=== PATIENT | male | born 1955 | race Caucasian/White ===

== ENCOUNTER 2017-04-15 05:29 | Inpatient (IN) | payer OTHER ==
[~2017-04-15] VITALS: Ht 172.7 cm; Wt 89.4 kg
[~2017-04-15 05:29] MED LIST: ACETAMINOPHEN 325 MG TABLET ONE; ACETAMINOPHEN 650 MG/20.3 ML UDC NG PRN; AMLO10TA4 PO; ASPI81TA2 PO; ATOR40TA PO; BLOO-668 IN; CELECOXIB 100 MG CAPSULE PO SCH; DICY10CA59 PO; HYDR-548 PO; IBUP-1482 PO; INSU100I19 SQ; KETOROLAC TROMETHAMINE 10 MG TABLET PO PRN; METO-302 PO; PIOG45TA PO; SILD100T PO; SITA1TAB6 PO; VALS1TAB52 PO; oxyCODONE HCL SR 10MG TAB.SR.12H PO ONE; oxyCODONE HCL SR 40MG TAB.SR.12H PO SCH
[2017-04-15] MEDS ORDERED: KETOROLAC TROMETHAMINE INJ 30 MG/ML VIAL IV PRN (06:00)
[2017-04-15] MEDS ORDERED: LIDOCAINE 0.5%-EPI 1:200,000 50 ML VIAL ONE (06:15)
[2017-04-15] MEDS ORDERED: HEMOSTATIC MATRIX 10 ML 1 EACH PAD MC ONE ×2 (06:15→10:54)
[2017-04-15] MEDS ORDERED: BUPIVACAINE 0.5 % PF 150 MG/30 ML VIAL ONE (06:15)
[2017-04-15] MEDS ORDERED: methylPREDNISolone ACETATE 80 MG/ML VIAL ONE (06:15)
[2017-04-15] MEDS ORDERED: DEXTROSE ISO IV ONE (06:16)
[2017-04-15] MEDS ORDERED: CEFAZOLIN SODIUM IV ONE (06:16)
[2017-04-15] MEDS ORDERED: HEPARIN SODIUM, PORCINE 5000 UNITS/1 ML VIAL ONE (06:27)
[2017-04-15] MEDS ORDERED: MIDAZOLAM HCL 2 MG/2ML VIAL ONE (07:23)
[2017-04-15] MEDS ORDERED: FENTANYL PF 250MCG/5ML AMPUL ONE ×2 (07:23→08:53)
[2017-04-15] MEDS ORDERED: ROCURONIUM BROMIDE 50 MG/5 ML ONE ×2 (07:23→08:53)
[2017-04-15] MEDS ORDERED: CEFAZOLIN SODIUM/DEXTROSE,ISO 50 ML IV ONE ×2 (10:02→13:17)
[2017-04-15] MEDS ORDERED: GELATIN SPONGE,ABSORBABLE 1 EA SPONGE TP ONE (10:46)
[2017-04-15] MEDS ORDERED: HYDROMORPHONE 2 MG/1 ML SDV ONE (14:24)
[2017-04-15] MEDS ORDERED: ANESTHESIA TRAY IN PYXIS 1 EA TRAY MC ONE (14:40)
[2017-04-15] MEDS ORDERED: AMBIEN 5 MG TABLET PO PRN (15:00)
[2017-04-15] MEDS ORDERED: COLACE 100 MG CAPSULE PO PRN (15:00)
[2017-04-15] MEDS ORDERED: DULCOLAX 10 MG/SUPP.RECT RC PRN (15:00)
[2017-04-15] MEDS ORDERED: ZOFRAN 4mg/2ML IV PRN (15:00)
[2017-04-15] MEDS ORDERED: IV D5/0.45 NACL 1,000 ML IV PRN (15:00)
[2017-04-15] MEDS ORDERED: TYLENOL 650 MG TABLET PO PRN (15:00)
--- NOTE | 2017-04-15 15:10 | NUR ---
[facility] admitting note Received patient from RN Adrien in OR. patient opens eyes spontaneously, drowsy s/p anesthesia, denies pain at this time, a+ox3. telemetry read SR 80s with 1st degree AV block. patient's friend is at bed side. BL wrist IVs patent, no complications. plan to commence maintenance fluids. pending assessment from hospitalist. Hightower catheter draining clear yellow urine. oriented to unit, discussed plan of care, educated patient on disease process, surgery, post op management, medication prescribed, and slow deep breathing. pt. need further education, he is lethargic at this time. anterior and posterior trunk dressings intact and clean. not to remove at this time per nursing report.. rest of integumentary system intact. no photos taken. wrist band on.
[2017-04-15 16:00] VITALS: BP 117/62
[2017-04-15] MEDS: ANCEF 1 G in IV D5W 50 ML IV SCH ×2 (16:02→23:58)
[2017-04-15] MEDS ORDERED: BLOOD SUGAR DIAGNOSTIC 1 EACH STRIP IN SCH (17:00)
[2017-04-15] MEDS: HYDROMORPHONE MDV 30 MG in IV NS 0.9% 15 ML, PCA TOTAL VOLUME 1 BAG IV PRN ×3 (17:21)
[2017-04-15] MEDS ORDERED: HYDROMORPHONE 1 MG/1 ML DISP.SYRIN IV ONE (17:30)
[2017-04-15] MEDS ORDERED: DEXTROSE 50%-WATER 50 ML DISP.SYRIN IV PRN (17:30)
--- NOTE | 2017-04-15 17:30 | NUR ---
RN note MUD PLANT OPERATOR pump set up with ICU nurse, charge nurse and pharmacist Rohit d/t trouble shooting. MUD PLANT OPERATOR pump is infusing at prescribed rate. patient is safe, no adverse effects, RR 16bpm. o2 sat 95% with 2L O2 NC.
[2017-04-15] MEDS: IV D5 / 0.2% NACL 1,000 ML IV PRN ×2 (18:23→23:58)
[2017-04-15] MEDS: METFORMIN 500 MG TABLET PO SCH (18:24)
[2017-04-15] MEDS: BLOOD SUGAR DIAGNOSTIC 1 EACH STRIP IN SCH ×2 (18:24→21:37)
[2017-04-15] MEDS: DICYCLOMINE HCL 10 MG CAPSULE PO SCH (18:24)
[2017-04-15] MEDS: INSULIN REGULAR, HUMAN 100 UNIT/ML 3 ML VIAL SQ PRN (18:29)
--- NOTE | 2017-04-15 18:49 | NUR ---
RN note VEHICLE UPHOLSTERER Shan said do not administer Dilaudid one time because EXPLOSIVES DETONATOR pump now infusing.
--- NOTE | 2017-04-15 19:12 | NUR ---
end of shift handed off report to night nurse. patient has increase LOC since admission. verbalizing needs. VS WNL. all needs attended to. call light in reach.
--- NOTE | 2017-04-15 19:30 | NUR ---
RN INITIAL NOTES RECEIVED PT AWAKE ON BED, A/O X4. ON 2L NASAL CANNULA, SATURATING WELL, NO S/S OF RESP DISTRESS. CURRENTLY ST WITH 1ST DEGREE AV BLOCK ON THE MONITOR, HR 100-110'S. PT IS ON DILAUDID (0.2MG/ML CONCENTRATION) MACHINE I ENGRAVER PUMP RUNNING @ CONTINUOUS RATE OF 0.2MG/HR, MACHINE I ENGRAVER DOSE OF 0.3MG, 1HOUR LIMIT OF 3MG. PT PAIN IS ADEQUATELY CONTROLLED OF THE MOMENT. JUANCARLOS RESTREPO NOTED. LEFT WRIST 18G AND RIGHT WRIST 18G WITH D5 1/4NS @ 75MLS/HR, FLUSHED AND PATENT, NO S/S OF INFILTRATION/INFECTION, DRESSINGS CDI. BED LOW AND LOCKED, SIDERAILS UP, CALL LIGHT WITHIN REACH. WILL MONITOR Addendum: 04/15/17 at 2232 by ANDRIA KIRBY RN DISREGARD DILAUDID CONCENTRATION ABOVE. CORRECT CONCENTRATION IS 1MG/1ML
[2017-04-15 20:00] VITALS: BP 96/57
[2017-04-15] MEDS: ATORVASTATIN 40 MG TABLET PO SCH (21:37)
[2017-04-15] MEDS: INSULIN DETEMIR 100 UNIT/ML CARTRIDGE SQ SCH (21:43)
--- NOTE | 2017-04-15 21:45 | NUR ---
RN NOTES PT REFUSED REGULAR INSULIN COVERAGE FOR BLOOD SUGAR OF 305. HOWEVER, HE ALLOWED ADMINISTRATION OF SCHEDULED LEVEMIR 45 UNITS. EDUCATION PROVIDED, PT VERBALIZED UNDERSTANDING
[2017-04-16] VITALS: BP 94/53
[2017-04-16 04:00] VITALS: BP 90/53
[2017-04-16 06:38] LABS: BASOPHILS % (AUTO) 0.4 % (0.0-2.0); EOSINOPHILS % (AUTO) 0.2 % (0.0-6.0); HEMATOCRIT 29 % (39-51); HEMOGLOBIN 9.8 g/dL (13.5-17.5); LYMPHOCYTES # (AUTO) 1.2 /CMM (0.8-4.8); LYMPHOCYTES % (AUTO) 13.8 % (20.0-44.0); MEAN CORPUSCULAR HEMOGLOBIN 30 PG (26.0-33.0); MEAN CORPUSCULAR HGB CONC 34 g/dl (31.0-36.0); MEAN CORPUSCULAR VOLUME 90 fL (80-96); MONOCYTES # (AUTO) 0.4 /CMM (0.1-1.30); MONOCYTES % (AUTO) 4.7 % (2.0-12.0); NEUTROPHILS # (AUTO) 6.8 /CMM (1.8-8.9); NEUTROPHILS % (AUTO) 80.9 % (43.0-81.0); PLATELET COUNT (AUTO) 166 /CMM (150-450); RDW COEFFICIENT OF VARIATION 15.6 (11.5-15.0); RED BLOOD CELL COUNT(AUTO) 3.25 MIL/uL (4.5-6.0); WHITE BLOOD COUNT (AUTO) 8.4 K/uL (4.3-11.0)
--- NOTE | 2017-04-16 06:45 | NUR ---
RN CLOSING NOTES PT REMAINS STABLE OF THE MOMENT. ALL DUE MEDS GIVEN, DILAUDID CONCENTRATOR OPERATOR PUMP STILL CURRENTLY INFUSING @ 0.2MG/HR. PT REFUSED AM CARE. WILL ENDORSE CONTINUITY OF CARE TO AM RN
[2017-04-16 07:06] LABS: CREATININE 1.3 mg/dL (0.6-1.3); POTASSIUM 4.5 mmol/L (3.5-5.1)
--- NOTE | 2017-04-16 07:30 | NUR ---
RN NOTES RECEIVED PT RESTING IN BED, WATCHING TV, AWAKE ALERT ORIENTEDX4, ABLE TO COMMUNICATE NEEDS. ON 2L NASAL CANNULA, SATURATING WELL, 99% AT THIS TIME. NO S/S OF RESP DISTRESS. CURRENTLY SR WITH 1ST DEGREE AV BLOCK ON THE MONITOR, HR 95 PER REPORT PT GOES ST UP TO 110'S. PT IS ON DILAUDID (0.2MG/ML CONCENTRATION) SURVEY INSTRUMENT OPERATOR PUMP RUNNING @ CONTINUOUS RATE OF 0.2MG/HR, SURVEY INSTRUMENT OPERATOR DOSE OF 0.3MG, 1HOUR LIMIT OF 3MG. CLEARED SURVEY INSTRUMENT OPERATOR INFUSION FROM PREVIOUS SHIFT. PT VERBALIZED HE'S STILL HAVE PAIN BUT ITS CONTROLLED. BAUER CATH PATENT CONNECTED TO CLOSED SYSTEM. LEFT WRIST 18G SL AND RIGHT WRIST 18G WITHIVF RUNNING D5 1/4NS @ 75MLS/HR, NO S/S OF INFILTRATION/INFECTION, DRESSINGS CDI. BED LOW AND LOCKED, SIDERAILS UP, CALL LIGHT WITHIN REACH. WILL MONITOR
[2017-04-16 08:00] VITALS: BP 86/50
[2017-04-16] MEDS: ASPIRIN 81 MG TAB.CHEW PO SCH (08:17)
[2017-04-16] MEDS: METFORMIN 500 MG TABLET PO SCH ×2 (08:17→16:44)
[2017-04-16] MEDS: PIOGLITAZONE HCL 15 MG TABLET PO SCH (08:17)
[2017-04-16] MEDS: LINAGLIPTIN 5 MG TABLET PO SCH (08:17)
[2017-04-16] MEDS: BLOOD SUGAR DIAGNOSTIC 1 EACH STRIP IN SCH ×4 (08:18→21:52)
[2017-04-16] MEDS: INSULIN REGULAR, HUMAN 100 UNIT/ML 3 ML VIAL SQ PRN ×2 (08:37→22:01)
[2017-04-16] MEDS: AMLODIPINE BESYLATE 10 MG TABLET PO SCH (09:00)
[2017-04-16] MEDS: METOPROLOL SUCCINATE 25 MG TAB.SR.24H PO SCH (09:00)
[2017-04-16] MEDS: DICYCLOMINE HCL 10 MG CAPSULE PO SCH ×3 (09:00→16:43)
--- NOTE | 2017-04-16 09:31 | NUR ---
RN NOTES BP MEDS HELD ([facility]) BP 86/59
--- NOTE | 2017-04-16 11:10 | NUR ---
RN NOTES SPOKE WITH DR RON PER MD ORTIZ FOR PHYSICAL THERAPIST TO WALK AMBULATE THE PATIENT WITHOUT BRACE.
[2017-04-16 12:00] VITALS: BP 98/63
--- NOTE | 2017-04-16 12:15 | NUR ---
RN NOTES BS 173MG/DL, PT REFUSED INSULIN COVERAGE, RISKS AND BENEFITS EXPLAINED PT STILL REFUSED
[2017-04-16] MEDS: IV D5 / 0.2% NACL 1,000 ML IV PRN (13:37)
--- NOTE | 2017-04-16 13:55 | NUR ---
RN NOTES QUINTIN COPE FOR DR RON AT BEDSIDE, PLAN OF CARE DISCUSSED WITH PT, ALL QUESTIONS AND CONCERNS WERE ANSWERED
--- NOTE | 2017-04-16 14:00 | NUR ---
RN NOTES PT VERBALIZED HE WANTS BAUER CATHETER TO BE REMOVED, PER COURY OKAY TO REMOVE FC. WILL MONITOR TO FOR RETENTION. URINAL PROVIDED AT BEDSIDE.
[2017-04-16 16:00] VITALS: BP 110/64
[2017-04-16] MEDS ORDERED: CYCLOBENZAPRINE 10 MG TABLET PO PRN (16:30)
--- NOTE | 2017-04-16 17:25 | NUR ---
RN NOTES BS 169MG/DL, REFUSED INSULIN COVERAGE RISKS AND BENEFITS EXPLAINED
[2017-04-16] MEDS ORDERED: KEY,NONCONTROL,TO KEEP IN PYXI 1 EA MC ONE ×3 (17:41→17:51)
[2017-04-16] MEDS: HYDROMORPHONE MDV 30 MG in IV NS 0.9% 15 ML, PCA TOTAL VOLUME 1 BAG IV PRN ×3 (17:59)
--- NOTE | 2017-04-16 19:20 | NUR ---
RN NOTEA PT RESTING IN BED, ON TUBER MACHINE CUTTER DRIP CONTINUOUS DOSE RATE OF 0.3MG/HR. ALL DUE MEDS GIVEN, NEEDS ATTENDED. PT HASNT VOID AFTER FC REMOVAL, PER PATIENT HE'S IN PAIN THATS WHY HE COULDNT VOID. PT ADVISED FC WILL HAVE TO BE REINSERTED IF NO VOIDD X8 HRS, PT REFUSED REINSERTION
[2017-04-16 20:00] VITALS: BP 97/61
[2017-04-16] MEDS: ATORVASTATIN 40 MG TABLET PO SCH (21:53)
[2017-04-16] MEDS: INSULIN DETEMIR 100 UNIT/ML CARTRIDGE SQ SCH (21:53)
--- NOTE | 2017-04-16 22:06 | NUR ---
BS [id number], PT REFUSED LEVEMIR DUE AT 2200, REGULAR INSULIN ADMINISTERED PER SLIDING SCALE. NO S/S OF HYPERGLYCEMIA.
--- NOTE | 2017-04-16 23:00 | NUR ---
PT WITH NO URINARY OUTPUT, NO S/S OF DISTRESS, PT DENIES PAIN AT THIS TIME.
[2017-04-17] VITALS: BP 89/53
--- NOTE | 2017-04-17 01:00 | NUR ---
PT STILL WITH NO URINARY OUTPUT, PT DENIES PAIN, STATED I AM NOT WORRY ABOUT MY URINE, TEACHING PROVIDED TO PT, PT REFUSING REINSERT F/C , CHARGE NURSE AWARE.
--- NOTE | 2017-04-17 03:45 | NUR ---
MD FREDERICK AWARE PT UNABLE TO URINATE AND PT REFUSING F/C, PT WITH NO S/S OF DISTRESS, WITH NO NEW ORDERS.
[2017-04-17 04:00] VITALS: BP 95/55
--- NOTE | 2017-04-17 04:00 | NUR ---
MATH AND SCIENCE INSTRUCTOR INCREASE FROM 0.3 TO 0.4MG, PT WITH COMPLAIN OF PAIN IN THE BACK.
[2017-04-17] MEDS: IV D5 / 0.2% NACL 1,000 ML IV PRN (04:16)
--- NOTE | 2017-04-17 05:00 | NUR ---
RN NOTES RECEIVED REPORT FROM TI BUSCH FOR THE PATIENT'S BALJIT. PT IS CURRENTLY AWAKE, TRYING TO VOID IN A URINAL WHILE STANDING WITH THE SUPPORT OF AN RN AND A ASSOCIATE CONSULTING ENGINEER. PT IS A/O X4, ON 2L NASAL CANNULA, SATURATING WELL, NO S/S OF RESP DISTRESS. PT IS ON DILAUDID BATT MACHINE OPERATOR PUMP WITH CONTINUOUS INFUSION OF 0.4MG/HR, BATT MACHINE OPERATOR (PATIENT CONTROLLED) DOSE OF 0.3MG, 3MG 1HOUR LIMIT, AND LOCKOUT INTERVAL OF 10MIN. BATT MACHINE OPERATOR IS RUNNING ON LEFT FOREARM 20G WITH D5 1/4NS @ 75MLS/HR, NO S/S OF INFILTRATION/INFECTION, DRESSING CDI. PER TI BUSCH, PT HASN'T BEEN ABLE TO VOID SINCE BAUER WAS DC'ED YESTERDAY. PT HAS SLIGHT ABDOMINAL DISTENTION. UNABLE TO VISUALIZE RESIDUALS USING ABDOMINAL ULTRASOUND (D/T MACHINE MALFUNCTION). PT DECLINES A NEW CATHETER TO BE PLACED. HAS BEEN MADE AWARE. PT TRYING TO VOID RIGHT NOW. BED LOW AND LOCKED, SIDERAILS UP, CALL LIGHT WITHIN REACH. WILL MONITOR
--- NOTE | 2017-04-17 05:50 | NUR ---
RN NOTES PT ABLE TO VOID IN URINAL. OUTPUT IS 200MLS
--- NOTE | 2017-04-17 06:30 | NUR ---
RN CLOSING NOTES PT REMAINS STABLE OF THE MOMENT. ALL DUE MEDS GIVEN, AM CARE PROVIDED. WILL ENDORSE BALJIT TO AM RN
--- NOTE | 2017-04-17 07:47 | NUR ---
RN NOTES RECEIVED PT UP IN CHAIR, AWAKE, ALERT ORIENTED X3, ON RA TOLERATED WELL. PT IS ON DILAUDID TELEPHONE LINES REPAIRER PUMP WITH CONTINUOUS INFUSION OF 0.4MG/HR, TELEPHONE LINES REPAIRER (PATIENT CONTROLLED) DOSE OF 0.3MG, 3MG 1HOUR LIMIT, AND LOCKOUT INTERVAL OF 10MIN. TELEPHONE LINES REPAIRER IS RUNNING ON LEFT FOREARM 20G WITH D5 1/4NS @ 75MLS/HR, NO S/S OF INFILTRATION/INFECTION, DRESSING CDI. PT VOIDED 200ML URINE LAST NIGHT. PT DECLINES A NEW CATHETER TO BE PLACED. HAS BEEN MADE AWARE. CALL LIGHT WITHIN REACH. WILL MONITOR
[2017-04-17 08:00] VITALS: BP 100/60
[2017-04-17] MEDS: DICYCLOMINE HCL 10 MG CAPSULE PO SCH ×3 (08:21→16:29)
[2017-04-17] MEDS: ASPIRIN 81 MG TAB.CHEW PO SCH (08:21)
[2017-04-17] MEDS: LINAGLIPTIN 5 MG TABLET PO SCH (08:21)
[2017-04-17] MEDS: PIOGLITAZONE HCL 15 MG TABLET PO SCH (08:21)
[2017-04-17] MEDS: BLOOD SUGAR DIAGNOSTIC 1 EACH STRIP IN SCH ×4 (08:21→22:00)
[2017-04-17] MEDS: METFORMIN 500 MG TABLET PO SCH ×2 (08:22→16:29)
[2017-04-17] MEDS: INSULIN REGULAR, HUMAN 100 UNIT/ML 3 ML VIAL SQ PRN (08:24)
[2017-04-17] MEDS: METOPROLOL SUCCINATE 25 MG TAB.SR.24H PO SCH (08:35)
[2017-04-17] MEDS: AMLODIPINE BESYLATE 10 MG TABLET PO SCH (08:35)
--- NOTE | 2017-04-17 10:00 | NUR ---
PT IS ON DILAUDID CHAIRMAN PUMP, WITH CONTINUOUS INFUSION, DOSE RATE DECREASED TO 0.3MG/HR
--- NOTE | 2017-04-17 11:21 | NUR ---
RN NOTES CALLED DR RON'S OFFICE TO FOLLOW UP IF ENGLISH INSTRUCTOR NEEDS TOO BE CONTINUED. SPOKE WITH MICKY GREEN WILL BE PAGED.
--- NOTE | 2017-04-17 14:27 | NUR ---
RN NOTES SPOKE WITH QUINTIN, MICKY RIBEIRO TO DC UNIVERSITY ADMINISTRATIVE ASSISTANT AND DC IVF. AND GAVE NEW ORDER HYDROMORPHONE IV 2MG Q4H PRN AND PERCOCET 5/325MG Q4H PRN FOR BREAKTHROUGH PAIN. ALL ORDERS READ BACK NOTED AND CARRIED OUT.
[2017-04-17] MEDS ORDERED: KEY,NONCONTROL,TO KEEP IN PYXI 1 EA MC ONE (14:46)
[2017-04-17] MEDS: HYDROMORPHONE INJ 2 MG/ML DISP.SYRIN IV PRN ×2 (15:54→21:13)
[2017-04-17 16:00] VITALS: BP 93/51
[2017-04-17] MEDS: oxyCODONE/APAP (5/325 MG) 1 UDTAB TABLET PO PRN (16:30)
--- NOTE | 2017-04-17 18:11 | NUR ---
RN NOTES BS 183 MG/DL REFUSED INSULIN COVERAGE
[2017-04-17 20:00] VITALS: BP 85/54
--- NOTE | 2017-04-17 20:00 | NUR ---
RECEIVED PATIENT WALKING IN THE ROOM INDEPENDENTLY, PATIENT WAS REMINDED OF SAFETY AND ENCOURAGE TO CALL FOR ASSISTANCE. CONTINUE TO MONITOR
[2017-04-17 21:00] VITALS: BP 92/56
--- NOTE | 2017-04-17 21:10 | NUR ---
PATIENT IS C/O BACK PAIN 03/10, BEING AGITATED AND REFUSED BS CHECK WELL COVERAGE IF NEEDED. PATIENT WAS EXPLAINED AND DIABETIC EDUCATION TRIED TO BE GIVE TO THE PATIENT BUT PATIENT RESPONED THAT HE HAS BEEN DIABETIC FOR A LONG TIME AND DOES NOT NEED ANY EXPLANATIONS/EDUCATIONS DILAUDID 2MG IVP GIVEN ORDERED AND PER PATIENT REQUEST. CONTINUE TO MONITOR
[2017-04-17] MEDS: ATORVASTATIN 40 MG TABLET PO SCH (21:12)
[2017-04-17] MEDS: INSULIN DETEMIR 100 UNIT/ML CARTRIDGE SQ SCH (22:00)
--- NOTE | 2017-04-17 22:00 | NUR ---
PATIENT IS CALM IN BED, NO DISTRESS NOTED. SAFETY MEASURES ARE IN PLACED, CALL LIGHT WITHIN PATIENT'S REACH. CONTINUE TO MONITOR
[2017-04-18] MEDS: oxyCODONE/APAP (5/325 MG) 1 UDTAB TABLET PO PRN ×2 (01:44→12:36)
--- NOTE | 2017-04-18 01:44 | NUR ---
PATIENT C/O BACK PAIN 02/07- PERCOCET GIVEN ORDERED, CONTINUE TO MONITOR
--- NOTE | 2017-04-18 03:00 | NUR ---
PATIENT IS CALM, ASLEEP, RESPIRATIONS ARE EVEN AND NON-LABORED
[2017-04-18 04:00] VITALS: BP 106/71
[2017-04-18 05:00] VITALS: BP 106/71
[2017-04-18] MEDS: HYDROMORPHONE INJ 2 MG/ML DISP.SYRIN IV PRN (06:40)
--- NOTE | 2017-04-18 06:40 | NUR ---
PATIENT C/O BACK PAIN 03/10- DILAUDID 2MG IVP GIVEN ORDERED CONTINUE TO MONITOR
--- NOTE | 2017-04-18 07:00 | NUR ---
RN NOTES PT RECEIVED SITTING ON THE EDGE OF THE BED, A/Ox4, ON RA , NO SOB NOTED, L FA IV G 20 SITE CDI, DRESSING TO LOWER BACK AND ABDOMEN CDI, NO SIGN OF COMPLICATION NOTED, PT LAURA ANY DISTRESS AT THIS TIME , CALL LIGHT WITHIN EASY REACH, CONTINUE PAIN MANAGEMENT AND MONITOR CLSOELY .
[2017-04-18] MEDS: BLOOD SUGAR DIAGNOSTIC 1 EACH STRIP IN SCH ×2 (07:30→11:37)
[2017-04-18 08:00] VITALS: BP 122/70
[2017-04-18] MEDS: ASPIRIN 81 MG TAB.CHEW PO SCH (08:48)
[2017-04-18] MEDS: PIOGLITAZONE HCL 15 MG TABLET PO SCH (08:48)
[2017-04-18] MEDS: METFORMIN 500 MG TABLET PO SCH (08:48)
[2017-04-18] MEDS: METOPROLOL SUCCINATE 25 MG TAB.SR.24H PO SCH (08:49)
[2017-04-18] MEDS: AMLODIPINE BESYLATE 10 MG TABLET PO SCH (08:51)
[2017-04-18] MEDS: DICYCLOMINE HCL 10 MG CAPSULE PO SCH ×2 (08:53→13:08)
[2017-04-18] MEDS: LINAGLIPTIN 5 MG TABLET PO SCH (08:53)
[2017-04-18] MEDS: INSULIN REGULAR, HUMAN 100 UNIT/ML 3 ML VIAL SQ PRN (11:37)
[2017-04-18 16:00] VITALS: BP 100/62
--- NOTE | 2017-04-18 16:15 | NUR ---
RN NOTES DISCHARGE INSTRUCTION AND EDUCATION GIVEN TO PT , PT VERBALIZES UNDERSTANDING , REFUSED DISCHARGE PHOTOS FROM THE SURGICAL INCISIONS . SURGICAL INCISION CLEAN AND DRY , NO REDNESS OR COMPLICATION NOTED. L F ARM H/L DISCONTINUED, PT LEFT THE FLOOR VIA W/C, ACCOMPANIED BY FAMILY AND STAFF MEMBERS IN STABLE CONDITION TO MAIN ENTRANCE .
== END 2017-04-18 16:30 | disposition home or self-care (01) | DRG 460 ==
LOC: DS 05:29 → TELE-TD 15:12 → MEDSG1 04-16 11:18
PROVIDERS: ADMIT Student in an Organized Health Care Education/Training Program; ATTEND Specialist
DX: M43.17 Spondylolisthesis, lumbosacral region (principal); E11.9 Type 2 diabetes mellitus without complications; F17.210 Nicotine dependence, cigarettes, uncomplicated; K58.9 Irritable bowel syndrome, unspecified; I10 Essential (primary) hypertension; M48.07 Spinal stenosis, lumbosacral region; M51.37 Other intervertebral disc degeneration, lumbosacral region; M54.30 Sciatica, unspecified side
CPT/HCPCS: 36415; 72100-TC; 80048-TC; 82962-TC; 85025-TC; 86850-TC; 86921-TC; 88304-TC; 88305-TC; 88311-TC; 97110-TC; 97116-TC; 97530-TC; A4216; A6209; A6402; J0690; J1040; J1100; J1170; J1644; J1815; J1885; J2250; J2370; J2405; J2710; J3010; J3490; J7060; Z7610